=== PATIENT | male | born 1955 | race Caucasian/White ===

== ENCOUNTER → 2021-12-09 14:27 | Outpatient (CLI) | payer MEDICARE, OTHER, SELFPAY ==
--- NOTE | ~2021-12-09 | XR_ITS ---
XR hip BI 2V w AP pelvis DATE: 12/09/2021 14:50 INDICATION: Bilateral hip pain TECHNIQUE: AP pelvis. AP and lateral views of each hip. COMPARISON: None FINDINGS: Status post bilateral posterior surgical fusion at L4-S1. There is lucency around the L4 pe dicle screws bilaterally consistent with loosening. No apparent fracture or dislocation of the hardwa re is noted on this limited examination. No pelvic fracture or bone destruction. The pubic symphysis and sacroiliac joints are intact. No fracture, dislocation, avascular necrosis or bone destruction of either hip is detected. Bilateral hip osteoarthritis. IMPRESSION: Bilateral posterior surgical fusion at L4-S1 Loosening of both L4 pedicle screws No pelvic or hip fracture or dislocation Reviewed, dictated and finalized at location B.
== END ==
PROVIDERS: Visit Provider Nurse Practitioner Adult Health
DX: M25.551 Pain in right hip (principal); Z98.1 Arthrodesis status
CPT/HCPCS: 73521